=== PATIENT | male | born 1990 | race Two or more races ===

== ENCOUNTER 2022-05-15 19:49 | Emergency (ER) | payer SELFPAY ==
[~2022-05-15] VITALS: Ht 177.8 cm; Wt 81.8 kg
[2022-05-15] MEDS ORDERED: ALBUTEROL SULF 2.5 MG/0.5ML(0.5%) NEB SOLN NEB ONE ×2 (20:00→20:30)
[2022-05-15] MEDS ORDERED: IPRATROPIUM BROM 0.5 MG/2.5ML INH SOL NEB ONE (20:00)
[2022-05-15] MEDS ORDERED: DexAMETHasone SOD PHOS 10MG/1ML VIAL INJ IV ONE (20:15)
[2022-05-15] MEDS ORDERED: ALBUTEROL SULF 2.5 MG/0.5ML(0.5%) NEB SOLN ONE (20:21)
[2022-05-15] MEDS ORDERED: PRED20TA2 PO (22:32)
[2022-05-15] MEDS ORDERED: ALBU108A5 IN (22:32)
[2022-05-15] MEDS ORDERED: MONT-8 PO (22:32)
[2022-05-15 22:45] VITALS: BP 135/76
== END 2022-05-15 22:33 | disposition home or self-care (01) ==
LOC: ER 19:49 → EDBD 19:49 → ER 22:33
DX: J45.909 Unspecified asthma, uncomplicated (principal); F41.9 Anxiety disorder, unspecified
CPT/HCPCS: 71045; 94640; 96374; 99283; J1100; J7644